=== PATIENT | male | born 1960 | race Caucasian/White ===

== ENCOUNTER 2016-07-18 22:11 | Emergency (ER) | payer SELFPAY ==
[~2016-07-18] VITALS: Ht 180.3 cm; Wt 79.4 kg
[2016-07-18] MEDS ORDERED: ASPIRIN81 MG PO (22:52)
[2016-07-18] MEDS ORDERED: KLOR-CON M1010 MEQ PO (22:53)
[2016-07-18] MEDS ORDERED: NEXIUM40 MG PO (22:53)
== END 2016-07-19 00:05 | disposition short-term general hospital (02) ==
LOC: ER 22:11
DX: J45.909 Unspecified asthma, uncomplicated (principal); J06.9 Acute upper respiratory infection, unspecified; I25.10 Atherosclerotic heart disease of native coronary artery without angina pectoris; F17.210 Nicotine dependence, cigarettes, uncomplicated